=== PATIENT | male | born 1960 | race Caucasian/White ===

== ENCOUNTER 2019-04-21 15:43 | Inpatient (IN) ==
[2019-04-21] MEDS ORDERED: 0.9 % Sodium Chloride 1,000 ML IVC ONE (15:57)
[2019-04-21] MEDS ORDERED: Vancomycin 1,000 MG VIAL IVPB ONE (15:57)
--- NOTE | 2019-04-21 16:00 | Emergency Department Note ---
Disposition Clinical Impression: Abscess Cellulitis Qualifiers: Site of cellulitis: extremity Site of cellulitis of extremity: upper extremity Laterality: right Qualified Code(s): L03.113 - Cellulitis of right upper limb Disposition: Admitted As Inpatient Time of Disposition: 18:01 General Adult HPI - General Chief complaint: ED Recheck/Abnormal Lab/Rx Stated complaint: "cellulitis" Time Seen by Provider: 04/21/19 15:53 Limitations: no limitations Nursing Notes Reviewed: Yes Vital Signs Reviewed: Yes - History of Present Illness HPI Narrative: Patient is a 58-year-old male with past medical history including hyperlipidemia, coronary artery disease with stent placement on Plavix, pacemaker for syncope, presenting with a chief complaint of worsening right arm infection. The patient states 4 days ago, he developed a knot that was concerning for abscess formation on his right elbow. He states he has one other history of an abscess that was an incision and drainage on his right forearm in December. He denies history of diabetes mellitus. He followed up with his primary care physician 3 days ago who gave him an intramuscular antibiotic shot and discharged him home with doxycycline. He states the knot became more swol coretta and tender. He also notes redness around the area. He followed up in the emergency department yesterday overnight. He had an incision and drainage of the abscess. He was discharged home on Keflex in addition to his doxycycline. Today, he complains of worsening swelling and redness. He states it is tracking up his right arm. He denies fevers or chills, numbness or tingling, abdominal pain, nausea or vomiting, chest pain, shortness breath. Pain Scale: 7 - Related Data Home Medications Medication Instructions Recorded Confirmed Aspirin [Lo-Dose Aspirin EC] 81 mg PO DAILY 04/22/17 12/31/18 Atorvastatin [Lipitor] 80 mg PO HS 04/22/17 12/31/18 Clopidogrel [Plavix] 75 mg PO DAILY 04/22/17 12/31/18 Latanoprost/Pf [Latanoprost 0.005% 1 drop BOTH EYES HS 04/22/17 12/31/18 Eye Drop] Nitroglycerin 0.4 mg SL AD PRN 12/31/18 12/31/18 Previous Rx's Medication Instructions Recorded Acetaminophen [Tylenol] 650 mg PO Q6H PRN tablet 01/03/19 Doxycycline Hyclate 100 mg PO BID #6 capsule 01/03/19 cephALEXin [Keflex] 500 mg PO QID #28 capsule 04/20/19 Allergies Allergy/AdvReac Type Severity Reaction Status Date / Time Penicillins [PCN] Allergy See Verified 04/21/19 15:50 Comments fentanyl AdvReac Hallucinati Verified 04/21/19 15:50 ng All systems ED: reviewed and negative except as stated. Review of Systems: As Per HPI Constitutional: Denies: fever, chills Cardiovascular: Denies: chest pain, palpitations Respiratory: Denies: cough, dyspnea Gastrointestinal: Denies: abdominal pain, nausea, vomiting Integumentary: Reports: other (abscess, redness, swelling) Neurological: Denies: headache, weakness, numbness Past Medical History - Past Medical History Attestation: Yes The following information was validated with the patient. Source: patient Medical history: Reports: glaucoma, myocardial infarction Surgical history: Reports: cholecystectomy, herniorrhaphy, knee replacement, other Psychiatric history: Reports: no psych history - Social History Smoking Status: Never smoker Smokeless Tobacco Status: No Alcohol use: Reports: none Drug use: Reports: none Physical Exam - General Limitations: no limitations General appearance: alert, in no apparent distress - Head Head exam: atraumatic, normocephalic - Eye Eye exam: Present: normal appearance, EOMI - ENT ENT exam: normal exam, normal oropharynx - Neck Neck exam: Present: normal inspection, trachea midline - Chest Chest inspection: Present: normal inspection, symmetric chest wall rise - Respiratory Respiratory exam: Present: normal lung sounds bilaterally. Absent: respiratory distress, wheezes - Cardiovascular Cardiovascular exam: Present: regular rate, normal rhythm, normal heart sounds, other (bilateral radial pulses equal and palpable) - Abdominal Exam Abdominal exam: Present: soft, Non-Tender. 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, bilateral upper extremity strength 5 out of 5, no sensory deficits of the right hand) - Psychiatric Psychiatric exam: Present: normal affect, normal mood - Skin Skin exam: Present: warm, dry Course Vital Signs Temperature 98.2 F 04/21/19 15:49 Pulse Rate 102 04/21/19 15:49 Respiratory Rate 16 04/21/19 15:49 Blood Pressure 119/75 04/21/19 15:49 O2 Sat by Pulse Oximetry 95 04/21/19 15:49 Temperature 98.2 F 04/21/19 15:49 Pulse Rate 84 04/21/19 16:39 Respiratory Rate 16 04/21/19 16:39 Blood Pressure 131/84 04/21/19 16:39 O2 Sat by Pulse Oximetry 96 04/21/19 16:39 Oxygen Delivery Oxygen Delivery Room Air Medical Decision Making - [facility] Narrative Medical decision making narrative: Patient is presenting with worsening right upper extremity cellulitis and abscess. He has failed outpatient treatment with doxycycline and Keflex. We wi ll start IV vancomycin. He will require CT upper extremity with IV contrast to evaluate the extent of the infection as well as any involvement of the vascular structures. We will obtain CBC, BMP, lactate, blood cultures as well. He does not want anything for pain at this time. He was mildly tachycardic so we will give him IV fluids. Tdap will also be given 17:15 Discussed with hospitalist, Dr. Bermudez, who accepts admission for cellulitis and abscess that failed outpatient treatment.. CT imaging is still pending at this time. Patient remains medically stable. 18:[address] Blas who will be admitting the patient. He added cefepime for additional antibiotic coverage. Patient's CT imaging is pending at this time. He has no acute complaints and is stable. - Medical Records Medical records reviewed: Yes I reviewed the patient's medical records. - Lab Data Lab results reviewed: Yes I reviewed the patient's lab results. Result diagrams: 04/21/19 16:32 04/21/19 16:32 Lab Results 04/21/19 04/21/19 Range/Units 16:32 16:32 WBC 7.0 (4.3-11.1) K/mcL RBC 5.14 (4.19-5.50) M/mcL Hgb 15.5 (12.9-16.9) g/dL Hct 44.0 (37.5-50.1) % MCV 85.6 (83.0-100.0) fL MCH 30.2 (28.0-33.3) pg MCHC 35.2 (31.6-35.5) g/dL RDW 11.8 (11.5-14.5) % Plt Count 210 (140-400) K/mcL MPV 12.5 H (9.4-12.4) fL Immature Gran % 0.4 (0-4) % Seg Neutrophils % 60.6 % Lymphocytes % 25.9 % Monocytes % 9.5 % Eosinophils % 2.6 % Basophils % 1.0 % Neutrophils # 4.2 (1.6-8.9) K/mcL Lymphocytes # 1.8 (0.6-4.6) K/mcL Monocytes # 0.7 (0.0-1.3) K/mcL Eosinophils # 0.2 (0.0-0.6) K/mcL Basophils # 0.1 (0.0-0.2) K/mcL Sodium 137 (136-145) mEq/L Potassium 3.5 (3.5-5.1) mEq/L Chloride 103 (98-107) mEq/L Carbon Dioxide 24 (23-29) mEq/L BUN 11 (6-20) mg/dL Creatinine 0.98 (0.70-1.30) mg/dL Est GFR ( Amer) > 60 (> 60) Est GFR (Non-Af Amer) > 60 (> 60) BUN/Creatinine Ratio 11 (6-26) Glucose 131 H (70-105) mg/dL Calculated Osmolality 285 (280-300) Calcium 9.4 (8.6-10.3) mg/dL Attestation Statement - Attestation Attestation: Patient was seen with resident physician. I reviewed the history, physical, assessment and plan, and agree with the findings. I also personally evaluated this patient and had [id number] time with this patient. 58-year-old male presents emergency Department with swelling of the right elbow. Patient states that on Sunday he was diagnosed with cellulitis given a shot by his primary care doctor and started on 2 antibiotics. He said he got worse came in Sunday and it was drained in the emergency department. However he said since then it continued to get worse. He said the swelling is now moving up his arm. It has also gotten more indurated red around with a did a draining. Patient says also getting more and more painful. He denies fevers or chills no chest pain or short of breath. No other complaints. No other injuries. Review of systems as above remainder negative. Physical exam vital signs are stable. ENT is unremarkable. Heart regular rhythm and rate. Lungs clear. Abdomen soft nontender. Extremities patient has what appears to be an abscess drainage wound on the lateral aspect of the right elbow. The area however is indurated is red and there is swelling is moving up the elbow at this point. It is exquisitely tender to palpation. Skin rashes noted. Psych normal. ED course. Patient's basically failed outpatient therapy. We will get a CT scan with IV contrast of the elbow just to ascertain the extent of the patient's infection. He will be started on IV antibiotics and admitted the hospital service for further evaluation treatment. His tetanus will also be updated. I agree with resident physician assessment and plan.
[2019-04-21] MEDS ORDERED: Isovue-370 500 ML BOTTLE IVP ONE (16:01)
[2019-04-21] MEDS ORDERED: Tdap (Boostrix) Vaccine 0.5 ML SYRINGE IM ONE (16:34)
[2019-04-21 16:45] LABS: Basophils # 0.1 K/mcL (0.0-0.2); Eosinophils # 0.2 K/mcL (0.0-0.6); Eosinophils % 2.6 %; Hemoglobin 15.5 g/dL (12.9-16.9); Immature Granulocytes % 0.4 % (0-4); Lymphocytes # 1.8 K/mcL (0.6-4.6); Lymphocytes % 25.9 %; Mean Corpuscular HGB Conc 35.2 g/dL (31.6-35.5); Mean Corpuscular Hemoglobin 30.2 pg (28.0-33.3); Mean Corpuscular Volume 85.6 fL (83.0-100.0); Mean Platelet Volume 12.5 fL (9.4-12.4); Monocytes # 0.7 K/mcL (0.0-1.3); Monocytes % 9.5 %; Neutrophils # 4.2 K/mcL (1.6-8.9); Platelet Count 210 K/mcL (140-400); Red Blood Count 5.14 M/mcL (4.19-5.50); Red Cell Distribution Width 11.8 % (11.5-14.5); Segmented Neutrophils % 60.6 %
[2019-04-21 17:01] LABS: BUN/Creatinine Ratio 11 (6-26); Blood Urea Nitrogen 11 mg/dL (6-20); Calcium 9.4 mg/dL (8.6-10.3); Carbon Dioxide 24 mEq/L (23-29); Chloride 103 mEq/L (98-107); Glucose 131 mg/dL (70-105); Osmolality,Calculated 285 (280-300); Potassium 3.5 mEq/L (3.5-5.1); Sodium 137 mEq/L (136-145); eGFR For African Americans > 60 (> 60); eGFR For Non-African Americans > 60 (> 60)
[2019-04-21] MEDS ORDERED: Naloxone 0.4 MG/ML INJ IVP PRN (17:27)
--- NOTE | 2019-04-21 17:53 | Internal Med History&Physical ---
Date of Encounter: 04/21/19 Time of Encounter: 17:30 Internal Medicine - H&P: HPI Chief complaint: right elbow cellultis History of present illness: Mr. Higginbotham is a 58 year old male with pmh of cellulitis, CAD presenting with right elbow swelling and warmth of a couple of days duration. He was recently here in december for a right forearm cellulitis which was drained and he was discharged on gentamicin. He comes back this time with a knot formation around the elbow. He says he had some contact with poison deb, which must have occurred while he was mowing grass. He went to his PCP about 3 days ago and was discharged on doxycycline. But he says the swelling and redness wasn't getting better, so he came to the ER yesterday and had an incision and drainage done and was discharged on keflex. However, he has continued to have worsening redness and pain around the elbow and returns to the ER today. He denies any other acute symptoms such as nausea or vomiting. He admits to intermittent fevers and chills. He had warmth and drainage around the upper right elbow on assessment In the ER, he had a CT scan done and was started on zosyn. He is being admitted for further management Past Med Surg Social Fam HX - Past Medical History Medical history: glaucoma, myocardial infarction Additional medical history: chronic back pain,. bradycardia Psychiatric history: no psych history - Past Surgical History Surgical History: cholecystectomy, herniorrhaphy, knee replacement, other Additional surgical history: shoulder surgery,. heart stent. cyst removed. thumb surgery. cervical disc - Social History Smoking Status: Never smoker Smokeless Tobacco Status: No Alcohol use: none Drug use: none Internal Medicine - H&P: Meds Aspirin [Lo-Dose Aspirin EC] 81 mg PO DAILY 04/22/17 [History] Atorvastatin [Lipitor] 80 mg PO HS 04/22/17 [History] Clopidogrel [Plavix] 75 mg PO DAILY 04/22/17 [History] Latanoprost/Pf [Latanoprost 0.005% Eye Drop] 1 drop BOTH EYES HS 04/22/17 [History] Nitroglycerin 0.4 mg SL AD PRN 12/31/18 [History] Acetaminophen [Tylenol] 650 mg PO Q6H PRN tablet 01/03/19 [Rx] Doxycycline Hyclate 100 mg PO BID #6 capsule 01/03/19 [Rx] cephALEXin [Keflex] 500 mg PO QID #28 capsule 04/20/19 [Rx] Allergy/AdvReac Type Severity Reaction Status Date / Time Penicillins [PCN] Allergy See Verified 04/21/19 15:50 Comments fentanyl AdvReac Hallucinati Verified 04/21/19 15:50 ng All Systems PM: A 10-system review of systems was performed and is negative for pertinent findings except as documented above in the HPI. - Constitutional Constitutional: no chills, no fever(s), no night sweats - EENT Eyes: no change in vision, no discharge, no pain, no photophobia Ears: no ear discharge, no ear pain, no tinnitus Nose, mouth and throat: no dysphagia, no nasal discharge, no neck pain, no sore throat - Cardiovascular Cardiovascular ROS IM: no chest pain, no diaphoresis, no dyspnea, no lightheadedness, no palpitations, no syncope - Respiratory Respiratory: no cough, no dyspnea, no wheezing, no excessive phlegm production - Gastrointestinal Gastrointestinal: no abdominal pain, no diarrhea, no hematemesis, no hematochezia, no melena, no nausea, no vomiting - Musculoskeletal Musculoskeletal ROS IM: no numbness, no tingling - Integumentary Integumentary IM: no rash, no unusual bruising Additional comments: elbow swelling, pain and redness - Neurological Neurological ROS: no confusion, no convulsions, no focal weakness, no numbness, no tingling, no tremor(s) - Hematologic/Lymphatic Hematologic/Lymphatic: no easy bruising - Constitutional Vitals: Temp Pulse Resp BP Pulse Ox 98.2 F 84 16 131/84 96 04/21/19 15:49 04/21/19 16:39 04/21/19 16:39 04/21/19 16:39 04/21/19 16:39 Exam: NAD - Head Head exam: Present: atraumatic, normocephalic - Eye Eye exam: Present: PERRL, conjuntiva pink, sclera anicteric Pupils: Present: PERRL - Neck Neck exam general surgery: Present: supple, trachea midline. Absent: lymphadenopathy - Respiratory Respiratory exam: Present: CTAB. Absent: accessory muscle use, rales, rhonchi, wheezes - Cardiovascular Cardiovascular exam: Present: RRR, +S1, +S2. Absent: diastolic murmur, gallop, rubs, systolic murmur - GI/Abdominal GI/Abdominal exam: Present: normal bowel sounds, soft, no peritoneal signs. Absent: distended, tenderness - Extremities Exam Extremities exam: Present: warm, radial pulses palpable and symmetrical. Absent: calf tenderness, cyanotic, pedal edema - Neurological Exam Neurological exam: Present: CN II-XII intact, oriented X3, no focal deficits. Absent: pronater drift, facial droop, speech deficit - Skin Skin exam: Present: dry, intact Internal Med - H&P Results - Labs CBC & Chem 7: 04/21/19 16:32 04/21/19 16:32 Labs: Short CBC 04/21/19 Range/Units 16:32 WBC 7.0 (4.3-11.1) K/mcL Hgb 15.5 (12.9-16.9) g/dL Hct 44.0 (37.5-50.1) % Plt Count 210 (140-400) K/mcL Neutrophils # 4.2 (1.6-8.9) K/mcL BMP 04/21/19 16:32 Sodium 137 Potassium 3.5 Chloride 103 Carbon Dioxide 24 BUN 11 Creatinine 0.98 Glucose 131 H Calcium 9.4 - Assessment and Plan (1) Recurrent cellulitis Current Visit: Yes Status: Acute Assessment and plan: Pt comes in with recurrent cellulitis of elbow with failed outpatient therapy on doxycycline and keflex Will start on vanc,c efepime and metronidazole. Obtain blood cultures Upper extremity. CT scan ordered stat. Ortho consult pending CT results (2) Coronary artery disease Current Visit: Yes Status: Acute Assessment and plan: Continue aspirin and plavix Qualifiers: Associated angina: with unspecified angina Qualified Code(s): I25.119 - Atherosclerotic heart disease of [place] coronary artery with unspecified angina pectoris (3) Dyslipidemia Current Visit: Yes Status: Acute Assessment and plan: Continue statin (4) DVT prophylaxis Current Visit: Yes Status: Acute Assessment and plan: heparin sc - Time Spent With Patient Total time spent is greater than 50% in coordination of care (as documented) at patient's floor/unit and/or counseling patient:
[2019-04-21] MEDS: Aspirin Enteric Coated 81 MG Tablet PO SCH (22:04)
[2019-04-21] MEDS: Cefepime HCl 2,000 MG in Water for inj. (sterile) 20 ML IVP SCH (22:04)
[2019-04-21] MEDS: Latanoprost 2.5 ML BOTTLE BOTH EYES SCH (22:43)
[2019-04-22] MEDS: MetroNIDAZOLE 500 MG/100 ML 500 MG/100 ML BAG IVPB SCH ×4 (00:14→23:05)
[2019-04-22 05:01] LABS: Basophils # 0.1 K/mcL (0.0-0.2); Basophils % 1.2 %; Eosinophils # 0.3 K/mcL (0.0-0.6); Eosinophils % 4.9 %; Hematocrit 43.9 % (37.5-50.1); Hemoglobin 15.2 g/dL (12.9-16.9); Immature Granulocytes % 0.3 % (0-4); Lymphocytes # 1.6 K/mcL (0.6-4.6); Lymphocytes % 26.4 %; Mean Corpuscular HGB Conc 34.6 g/dL (31.6-35.5); Mean Corpuscular Hemoglobin 30.3 pg (28.0-33.3); Mean Corpuscular Volume 87.6 fL (83.0-100.0); Mean Platelet Volume 12.4 fL (9.4-12.4); Monocytes # 0.6 K/mcL (0.0-1.3); Monocytes % 9.8 %; Neutrophils # 3.4 K/mcL (1.6-8.9); Platelet Count 186 K/mcL (140-400); Red Blood Count 5.01 M/mcL (4.19-5.50); Segmented Neutrophils % 57.4 %; White Blood Count 5.9 K/mcL (4.3-11.1)
[2019-04-22 05:22] LABS: BUN/Creatinine Ratio 11 (6-26); Blood Urea Nitrogen 11 mg/dL (6-20); Calcium 9.3 mg/dL (8.6-10.3); Carbon Dioxide 26 mEq/L (23-29); Chloride 107 mEq/L (98-107); Glucose 104 mg/dL (70-105); Magnesium 2.1 mg/dL (1.6-2.6); Osmolality,Calculated 286 (280-300); Phosphorous 3.8 mg/dL (2.7-4.5); Potassium 4.1 mEq/L (3.5-5.1); Sodium 138 mEq/L (136-145); eGFR For African Americans > 60 (> 60); eGFR For Non-African Americans > 60 (> 60)
[2019-04-22] MEDS: Cefepime HCl 2,000 MG in Water for inj. (sterile) 20 ML IVP SCH ×2 (06:37→17:50)
--- NOTE | 2019-04-22 08:27 | Internal Med Progress Note ---
Hospitalist Progress Note - Encounter Date of Encounter: 04/22/19 Time of Encounter: 08:25 - Subjective Interval History: No acute events overnight - Exam Vitals: Temp Pulse Resp BP Pulse Ox 97.5 F L 63 14 123/73 96 04/22/19 06:33 04/22/19 06:33 04/22/19 06:33 04/22/19 06:33 04/22/19 06:33 Exam: General appearance: Present: A&O X 3, no acute distress Head exam: Present: normocephalic Respiratory exam: Present: CTAB. Absent: accessory muscle use, rales, rhonchi, wheezes Cardiovascular exam: Present: RRR, +S1, +S2. Absent: diastolic murmur, gallop, rubs, systolic murmur GI/Abdominal exam: Soft, NT, ND, +BS Extremities exam: redness of rightupper extremity Neurological exam: Present: alert, oriented X3, no focal deficits. Absent: altered - Assessment and Plan (1) Recurrent cellulitis Current Visit: Yes Status: Acute Assessment and Plan: Pt comes in with recurrent cellulitis of elbow with failed outpatient therapy on doxycycline and keflex Continue on vanc, cefepime and metronidazole. Obtain blood cultures CT upper extremity showed no drainable abscess or fluid collection (2) Coronary artery disease Current Visit: Yes Status: Acute Assessment and Plan: Continue aspirin and plavix (3) Dyslipidemia Current Visit: Yes Status: Acute Assessment and Plan: Continue statin (4) DVT prophylaxis Current Visit: Yes Status: Acute Assessment and Plan: heparin sc - Time Spent with Patient Total time spent is greater than 50% in coordination of care (as documented) at patient's floor/unit and/or counseling patient: Internal Medicine: Result - Labs CBC & Chem 7: 04/22/19 04:10 04/22/19 04:10 Labs: Short CBC 04/21/19 04/22/19 Range/Units 16:32 04:10 WBC 7.0 5.9 (4.3-11.1) K/mcL Hgb 15.5 15.2 (12.9-16.9) g/dL Hct 44.0 43.9 (37.5-50.1) % Plt Count 210 186 (140-400) K/mcL Neutrophils # 4.2 3.4 (1.6-8.9) K/mcL BMP 04/21/19 04/22/19 16:32 04:10 Sodium 137 138 Potassium 3.5 4.1 Chloride 103 107 Carbon Dioxide 24 26 BUN 11 11 Creatinine 0.98 0.98 Glucose 131 H 104 Calcium 9.4 9.3 - Impressions Impressions Upper Extremity CT 04/21/19 16:01 IMPRESSION: 1. Diffuse subcutaneous edema involving the distal upper arm and forearm predominantly along the dorsal and ulnar aspect of the forearm. Correlate clinically for cellulitis. No organized drainable fluid collection identified. No subcutaneous gas is identified. 2. No acute osseous abnormality. No CT evidence for osteomyelitis. 3. Moderate glenohumeral osteoarthritis and mild radiocapitellar and ulnar trochlear joint osteoarthritis. D/ / Zac Gómez MD / Zac Gómez MD Interpreting Provider: Zac Gómez MD Consult Discharge Plan - Plan Referrals: Dilshad Powell DO [Primary Care Provider] - (2) Coronary artery disease Qualifiers: Associated angina: with unspecified angina Qualified Code(s): I25.119 - Atherosclerotic heart disease of [place] coronary artery with unspecified angina pectoris
[2019-04-22] MEDS: Aspirin Enteric Coated 81 MG Tablet PO SCH (20:27)
[2019-04-22] MEDS: Latanoprost 2.5 ML BOTTLE BOTH EYES SCH (20:28)
[2019-04-23] MEDS: Cefepime HCl 2,000 MG in Water for inj. (sterile) 20 ML IVP SCH (05:39)
[2019-04-23 06:34] LABS: Basophils # 0.1 K/mcL (0.0-0.2); Basophils % 1.2 %; Eosinophils # 0.3 K/mcL (0.0-0.6); Eosinophils % 4.9 %; Hematocrit 44.2 % (37.5-50.1); Hemoglobin 15.4 g/dL (12.9-16.9); Immature Granulocytes % 0.2 % (0-4); Lymphocytes # 1.6 K/mcL (0.6-4.6); Lymphocytes % 28.1 %; Mean Corpuscular HGB Conc 34.8 g/dL (31.6-35.5); Mean Corpuscular Volume 86.2 fL (83.0-100.0); Monocytes # 0.5 K/mcL (0.0-1.3); Monocytes % 9.1 %; Neutrophils # 3.2 K/mcL (1.6-8.9); Platelet Count 229 K/mcL (140-400); Red Blood Count 5.13 M/mcL (4.19-5.50); Red Cell Distribution Width 11.9 % (11.5-14.5); Segmented Neutrophils % 56.5 %; White Blood Count 5.7 K/mcL (4.3-11.1)
[2019-04-23 06:55] LABS: BUN/Creatinine Ratio 13 (6-26); Blood Urea Nitrogen 12 mg/dL (6-20); Calcium 9.3 mg/dL (8.6-10.3); Carbon Dioxide 25 mEq/L (23-29); Chloride 105 mEq/L (98-107); Glucose 102 mg/dL (70-105); Osmolality,Calculated 286 (280-300); Phosphorous 3.2 mg/dL (2.7-4.5); Potassium 4.4 mEq/L (3.5-5.1); Sodium 138 mEq/L (136-145); eGFR For African Americans > 60 (> 60); eGFR For Non-African Americans > 60 (> 60)
[2019-04-23] MEDS ORDERED: MetroNIDAZOLE 500 MG/100 ML 500 MG/100 ML BAG IVPB SCH (09:00)
--- NOTE | 2019-04-23 09:01 | Internal Med Progress Note ---
Hospitalist Progress Note - Encounter Date of Encounter: 04/23/19 Time of Encounter: 08:59 - Subjective Interval History: I have seen and evaluated the patient at bedside. patient reports still feeling his arm feels heavier and swollen, but reports it is better that what it was when he came to the ED. denies tenderness to tough. denies nausea, vomiting or diarrhea. - Exam Vitals: Temp Pulse Resp BP Pulse Ox 98.3 F 70 16 134/78 96 04/23/19 06:37 04/23/19 06:37 04/23/19 06:37 04/23/19 06:37 04/23/19 06:37 Exam: Vitals: Reviewed General: Alert and oriented x4. In no distress Cardiovascular: RRR, normal S1 & S2, no rubs, murmurs or gallops. Lungs: CTA b/l, no wheezes or crackles. Abdomen: Soft, non-tender, no rigidity. Extremities: minimal edema on the right upper extr. Neurological: Normal cognition and motor skills. Rest of the physical exam is non contributory - Assessment and Plan (1) Cellulitis Current Visit: Yes Status: Acute Assessment and Plan: Patient reported having a similar episode of cellulitis of the right upper extr on December 2018, that required Iv antibiotics CT/CT UE RT w con IMPRESSION: 1. Diffuse subcutaneous edema involving the distal upper arm and forearm predominantly along the dorsal and ulnar aspect of the forearm. Correlate clinically for cellulitis. No organized drainable fluid collection identified. No subcutaneous gas is identified. 2. No acute osseous abnormality. No CT evidence for osteomyelitis. 3. Moderate glenohumeral osteoarthritis and mild radiocapitellar and ulnar trochlear joint osteoarthritis. Plan Wound culture: Growing gram positive cocci, presumptively staph, sensitivity to follow. discontinue metronidazole and cefepime. will continue vancomycin per pharmacy protocol (2) Coronary artery disease Current Visit: Yes Status: Chronic Assessment and Plan: Continue aspirin 821mg/PO daily and clopidogrel 75mg/PO daily, home medication (3) Dyslipidemia Current Visit: Yes Status: Acute Assessment and Plan: on atorvastatin 80mg/PO daily. DVT Prophylaxis: Started on heparin subQ. - Summary of Assessment and Plan Summary of Assessment and Plan: Patient to remain in the hospital on IV antibiotics. Pending wound culture sensitivity. Potential discharge tomorrow on PO antibiotics - Time Spent with Patient Total time spent is greater than 50% in coordination of care (as documented) at patient's floor/unit and/or counseling patient: Greater than 35 minutes (40) Plan of Care Discussed with: patient (and the nurse.) Internal Medicine: Result - Labs CBC & Chem 7: 04/23/19 06:20 04/23/19 06:20 Labs: Short CBC 04/23/19 Range/Units 06:20 WBC 5.7 (4.3-11.1) K/mcL Hgb 15.4 (12.9-16.9) g/dL Hct 44.2 (37.5-50.1) % Plt Count 229 (140-400) K/mcL Neutrophils # 3.2 (1.6-8.9) K/mcL BMP 04/23/19 06:20 Sodium 138 Potassium 4.4 Chloride 105 Carbon Dioxide 25 BUN 12 Creatinine 0.90 Glucose 102 Calcium 9.3 Consult Discharge Plan - Plan Referrals: Dilshad Powell DO [Primary Care Provider] - (1) Cellulitis Qualifiers: Site of cellulitis: extremity Site of cellulitis of extremity: upper extremity Laterality: right Qualified Code(s): L03.113 - Cellulitis of right upper limb (2) Coronary artery disease Qualifiers: Coronary Disease-Associated Artery/Lesion type: unspecified vessel or lesion type [place] vs. transplanted heart: unspecified whether [place] or transplanted heart Associated angina: with unspecified angina Qualified Code(s): I25.119 - Atherosclerotic heart disease of [place] coronary artery with unspecified angina pectoris
[2019-04-23] MEDS: *HR* Heparin 5,000 UNIT/ML VIAL SQ SCH ×2 (14:58→20:38)
[2019-04-23] MEDS: Aspirin Enteric Coated 81 MG Tablet PO SCH (20:34)
[2019-04-23] MEDS: Latanoprost 2.5 ML BOTTLE BOTH EYES SCH (20:37)
[2019-04-24] MEDS: *HR* Heparin 5,000 UNIT/ML VIAL SQ SCH (06:27)
[2019-04-24 08:38] VITALS: BP 128/80
[2019-04-24 09:09] LABS: Basophils # 0.1 K/mcL (0.0-0.2); Eosinophils # 0.3 K/mcL (0.0-0.6); Eosinophils % 4.9 %; Hematocrit 45.9 % (37.5-50.1); Hemoglobin 15.8 g/dL (12.9-16.9); Immature Granulocytes % 0.5 % (0-4); Lymphocytes # 2.2 K/mcL (0.6-4.6); Lymphocytes % 35.4 %; Mean Corpuscular HGB Conc 34.4 g/dL (31.6-35.5); Mean Corpuscular Hemoglobin 29.5 pg (28.0-33.3); Mean Corpuscular Volume 85.8 fL (83.0-100.0); Monocytes # 0.5 K/mcL (0.0-1.3); Monocytes % 8.1 %; Neutrophils # 3.1 K/mcL (1.6-8.9); Platelet Count 243 K/mcL (140-400); Red Blood Count 5.35 M/mcL (4.19-5.50); Red Cell Distribution Width 11.8 % (11.5-14.5); Segmented Neutrophils % 50.1 %; White Blood Count 6.2 K/mcL (4.3-11.1)
[2019-04-24 09:27] LABS: BUN/Creatinine Ratio 14 (6-26); Blood Urea Nitrogen 12 mg/dL (6-20); Calcium 9.2 mg/dL (8.6-10.3); Carbon Dioxide 29 mEq/L (23-29); Chloride 106 mEq/L (98-107); Glucose 90 mg/dL (70-105); Magnesium 2.1 mg/dL (1.6-2.6); Osmolality,Calculated 287 (280-300); Phosphorous 2.9 mg/dL (2.7-4.5); Potassium 4.1 mEq/L (3.5-5.1); Sodium 139 mEq/L (136-145); eGFR For African Americans > 60 (> 60); eGFR For Non-African Americans > 60 (> 60)
--- NOTE | 2019-04-24 09:52 | Discharge Summary ---
Orders not resulted at time of discharge: Pending orders 04/21/19 16:59 Culture,Blood [BC] Stat 04/24/19 18:00 Vancomycin,Trough Timed 04/25/19 04:00 Basic Metabolic Panel AM 0400 CBC [Complete Blood Count] [HEME] AM 0400 Magnesium AM 0400 Phosphorous AM 0400 04/26/19 04:00 Basic Metabolic Panel AM 0400 CBC [Complete Blood Count] [HEME] AM 0400 Magnesium AM 0400 Phosphorous AM 0400 04/27/19 04:00 Basic Metabolic Panel AM 0400 CBC [Complete Blood Count] [HEME] AM 0400 Magnesium AM 0400 Phosphorous AM 0400 04/28/19 04:00 Basic Metabolic Panel AM 0400 CBC [Complete Blood Count] [HEME] AM 0400 Magnesium AM 0400 Phosphorous AM 0400 Date of Encounter: 04/24/19 Time of Encounter: 09:49 - Discharge Diagnosis (1) Cellulitis Priority: Primary Status: Acute Qualifiers: Site of cellulitis: extremity Site of cellulitis of extremity: upper extremity Laterality: right Qualified Code(s): L03.113 - Cellulitis of right upper limb (2) Coronary artery disease Priority: Secondary Status: Chronic Qualifiers: Coronary Disease-Associated Artery/Lesion type: unspecified vessel or lesion type [place] vs. transplanted heart: unspecified whether [place] or transplanted heart Associated angina: with unspecified angina Qualified Code(s): I25.119 - Atherosclerotic heart disease of [place] coronary artery with unspecified angina pectoris (3) Dyslipidemia Priority: Secondary Status: Chronic Hospital course: Mr. Higginbotham is a 58 year old male pmh of cellulitis, CAD presenting with right elbow swelling and warmth of a couple of days duration. He was recently here in december for a right forearm cellulitis which was drained and he was discharged on gentamicin. He comes back this time with a knot formation around the elbow. he came to the ER the day before this admission and had an incision and drainage done and was discharged on keflex. However, he has continued to have worsening redness and pain around the elbow and returns to the ER. In the ER a CT of the extremity done: 1. Diffuse subcutaneous edema involving the distal upper arm and forearm predominantly along the dorsal and ulnar aspect of the forearm. Correlate clinically for cellulitis. No organized drainable fluid collection identified. No subcutaneous gas is identified. Patient admitted to the hospital due to to cellulitis. Patient was managed with broad spectrum IV antibiotics. Wound culture: grew staph aureus MSSA. Patient allergic to penicillins. Discharged on oral clindamycin to complete treatment. Recommended to follow up with his PCP within a week of hospital discharge. - Time Spent with Patient Total time spent providing and/or coordinating discharge services: Time spent: Greater than 30 minutes (35) - Discharge Medications Prescriptions: New Lactobacillus Acidophilus [Acidophilus Probiotic] 1 mg PO BID 30 Days #60 tablet Clindamycin HCl [Cleocin HCl] 300 mg PO TID 5 Days #15 cap Continued Clopidogrel [Plavix] 75 mg PO DAILY Atorvastatin [Lipitor] 80 mg PO HS Latanoprost/Pf [Latanoprost 0.005% Eye Drop] 1 drop BOTH EYES HS Aspirin [Lo-Dose Aspirin EC] 81 mg PO DAILY Nitroglycerin 0.4 mg SL AD PRN PRN Reason: Chest Pain Acetaminophen [Tylenol] 650 mg PO Q6H PRN tablet PRN Reason: Pain Discontinued Doxycycline Hyclate 100 mg PO BID #6 capsule Home Medications: Aspirin [Lo-Dose Aspirin EC] 81 mg PO DAILY 04/22/17 [History] Atorvastatin [Lipitor] 80 mg PO HS 04/22/17 [History] Clopidogrel [Plavix] 75 mg PO DAILY 04/22/17 [History] Latanoprost/Pf [Latanoprost 0.005% Eye Drop] 1 drop BOTH EYES HS 04/22/17 [History] Nitroglycerin 0.4 mg SL AD PRN 12/31/18 [History] Acetaminophen [Tylenol] 650 mg PO Q6H PRN tablet 01/03/19 [Rx] Clindamycin HCl [Cleocin HCl] 300 mg PO TID 5 Days #15 cap 04/24/19 [Rx] Lactobacillus Acidophilus [Acidophilus Probiotic] 1 mg PO BID 30 Days #60 tablet 04/24/19 [Rx] Allergies/Adverse Reactions: Allergy/AdvReac Type Severity Reaction Status Date / Time Penicillins [PCN] Allergy See Verified 04/21/19 15:50 Comments fentanyl AdvReac Hallucinati Verified 04/21/19 15:50 ng Date of admission: 04/21/19 17:27 Primary care physician: Ben Powell DO - Constitutional Vitals: Temp Pulse Resp BP Pulse Ox 98 F 61 18 128/80 95 04/24/19 07:46 04/24/19 07:46 04/24/19 07:46 04/24/19 07:46 04/24/19 07:46 Exam: Vitals: Reviewed General: Alert and oriented x4. In no distress Cardiovascular: RRR, normal S1 & S2, no rubs, murmurs or gallops. Lungs: CTA b/l, no wheezes or crackles. Abdomen: Soft, non-tender, no rigidity. NABS in all 4 quadrants Extremities: No edema in the upper or lower extr b/l. Neurological: Normal cognition and motor skills. Rest of the physical exam is non contributory - Patient Status Disposition: Home, Self-Care Condition: Good Functional capacity at discharge: independent ambulation Overall status at discharge: patient is back to baseline - Discharge Instructions Follow Up With: Dilshad Powell DO [Primary Care Provider] - - Diet and Activity Activity: resume usual activities as tolerated Diet: low salt diet
[2019-04-24] MEDS ORDERED: Aminoglycoside Consult 1 EACH MC ONE (11:19)
== END 2019-04-24 11:20 | disposition home or self-care (01) | DRG 603 ==
LOC: 3NENU 15:43 → EMEROOARM 15:43 → SUATTDRO 17:27 → 3NENU 19:41
PROVIDERS: ADMIT Internal Medicine Nephrology; ATTEND Internal Medicine

== ENCOUNTER 2020-02-02 12:39 | Observation (INO) ==
[~2020-02-02 12:39] MED LIST: Total Joint Mixture (50 ml) IR ONE
[2020-02-02] MEDS ORDERED: *HR* HYDROmorphone (PF) 1 MG/ML SYRINGE IVP PRN (13:32)
[2020-02-02] MEDS ORDERED: Ondansetron 4 MG/2 ML VIAL IVP PRN ×2 (13:32→19:17)
[2020-02-02] MEDS ORDERED: *HR* Labetalol 20 MG/4 ML SYRINGE IVP PRN (13:32)
[2020-02-02] MEDS ORDERED: Celecoxib 200 MG CAPSULE PO ONE (13:32)
[2020-02-02] MEDS ORDERED: *HR* Promethazine 25 MG/ML VIAL IVP PRN ×2 (13:32→19:17)
[2020-02-02] MEDS ORDERED: Clindamycin 900 MG/50 ML 900 MG/50 ML IV.SOLN IVPB ONE (13:59)
[2020-02-02] MEDS ORDERED: Ringers Solution, Lactated 1,000 ML IVC SCH (14:00)
[2020-02-02] MEDS ORDERED: Dexamethasone 4 MG/ML VIAL ONE (14:55)
[2020-02-02] MEDS ORDERED: Lidocaine -MPF 2% 2 ML VIAL ONE (14:55)
[2020-02-02] MEDS ORDERED: Ondansetron 4 MG/2 ML VIAL ONE (14:55)
[2020-02-02] MEDS ORDERED: *HR* Propofol 200 MG/20 ML VIAL IVP ONE (14:55)
[2020-02-02] MEDS ORDERED: *HR* HYDROMORPHONE 2 MG/ML VIAL ONE (14:55)
[2020-02-02] MEDS ORDERED: Tranexamic Acid 1,000 MG/10 ML VIAL ONE (15:01)
[2020-02-02] MEDS ORDERED: Ethanol\\Acetic Acid\\Na Ace\\Ben 1,000 ML IRRIG.SOLN IR ONE (15:21)
[2020-02-02] MEDS ORDERED: *HR* Succinylcholine 200 MG/10 ML VIAL IVP ONE (15:36)
[2020-02-02] MEDS ORDERED: *HR* Rocuronium Bromide 50 MG/5 ML VIAL ONE (15:37)
[2020-02-02] MEDS ORDERED: Neostigmine Methylsulfate 3 MG/3 ML SYRINGE ONE ×2 (17:18→17:19)
[2020-02-02 18:13] LABS: Hemoglobin 15.5 g/dL (12.9-16.9)
[2020-02-02] MEDS ORDERED: Nitroglycerin 0.4 MG TAB.SUBL SL PRN (19:17)
[2020-02-02] MEDS ORDERED: Sennosides 8.6 MG TABLET PO PRN (19:17)
[2020-02-02] MEDS ORDERED: MOM Conc 10 ML UD.LIQ PO PRN (19:17)
[2020-02-02] MEDS ORDERED: Naloxone 0.4 MG/ML INJ IVP PRN (19:17)
[2020-02-02] MEDS: Ascorbic Acid 500 MG TABLET PO SCH (21:21)
[2020-02-02] MEDS: Clindamycin 900 MG/50 ML 900 MG/50 ML IV.SOLN IVPB SCH (21:21)
[2020-02-02] MEDS: *HR* OxyCODONE Immed Rel 5 MG TABLET PO PRN (21:22)
[2020-02-02] MEDS: Latanoprost 2.5 ML BOTTLE BOTH EYES SCH (23:28)
[2020-02-02] MEDS: HYDROcodone BIT/Homatropine 5 MG TABLET PO PRN (23:28)
[2020-02-03] MEDS: *HR* OxyCODONE Immed Rel 5 MG TABLET PO PRN ×3 (03:19→20:13)
[2020-02-03] MEDS: Clindamycin 900 MG/50 ML 900 MG/50 ML IV.SOLN IVPB SCH (05:33)
[2020-02-03] MEDS: HYDROcodone BIT/Homatropine 5 MG TABLET PO PRN ×2 (05:34→12:28)
[2020-02-03 05:57] LABS: Basophils % 0.1 %; Hematocrit 41.2 % (37.5-50.1); Hemoglobin 14.1 g/dL (12.9-16.9); Immature Granulocytes % 0.3 % (0-4); Lymphocytes # 0.7 K/mcL (0.6-4.6); Lymphocytes % 5.9 %; Mean Corpuscular HGB Conc 34.2 g/dL (31.6-35.5); Mean Corpuscular Hemoglobin 30.1 pg (28.0-33.3); Mean Platelet Volume 12.7 fL (9.4-12.4); Monocytes # 0.6 K/mcL (0.0-1.3); Monocytes % 4.7 %; Neutrophils # 10.7 K/mcL (1.6-8.9); Platelet Count 180 K/mcL (140-400); Red Blood Count 4.68 M/mcL (4.19-5.50); Red Cell Distribution Width 11.7 % (11.5-14.5); White Blood Count 12.1 K/mcL (4.3-11.1)
[2020-02-03 06:08] LABS: BUN/Creatinine Ratio 20 (6-26); Blood Urea Nitrogen 19 mg/dL (6-20); Calcium 8.9 mg/dL (8.6-10.3); Carbon Dioxide 25 mEq/L (23-29); Chloride 101 mEq/L (98-107); Glucose 148 mg/dL (70-105); Osmolality,Calculated 293 (280-300); Potassium 4.5 mEq/L (3.5-5.1); Sodium 139 mEq/L (136-145); eGFR For African Americans > 60 (> 60); eGFR For Non-African Americans > 60 (> 60)
[2020-02-03] MEDS: Ringers Solution, Lactated 1,000 ML IVC SCH ×2 (07:56→09:05)
[2020-02-03] MEDS ORDERED: Dextrose Gel 15 GM/37.5 ML TUBE PO PRN ×2 (08:24)
[2020-02-03] MEDS ORDERED: D5% in Water 1,000 ML IVC PRN (08:24)
[2020-02-03] MEDS ORDERED: *HR* Dextrose 50 % in Water (Syg) 50 ML SYRINGE IVP PRN (08:24)
[2020-02-03] MEDS: Ascorbic Acid 500 MG TABLET PO SCH ×2 (09:05→16:38)
[2020-02-03] MEDS: Multivit/Ca/Min/Fe/FA 1 TAB TABLET PO SCH (09:05)
[2020-02-03] MEDS: Insulin LISPRO 300 UNITS/3 ML VIAL SQ SCH ×2 (12:28→16:37)
[2020-02-03] MEDS: Aspirin Enteric Coated 81 MG Tablet PO SCH (14:14)
[2020-02-03] MEDS: Latanoprost 2.5 ML BOTTLE BOTH EYES SCH (20:04)
[2020-02-03] MEDS ORDERED: Insulin LISPRO 300 UNITS/3 ML VIAL SQ SCH (21:00)
[2020-02-04] MEDS: *HR* OxyCODONE Immed Rel 5 MG TABLET PO PRN ×2 (02:59→08:06)
[2020-02-04 05:04] LABS: Basophils % 0.4 %; Eosinophils # 0.1 K/mcL (0.0-0.6); Eosinophils % 1.1 %; Hemoglobin 12.9 g/dL (12.9-16.9); Immature Granulocytes % 0.2 % (0-4); Lymphocytes # 2.5 K/mcL (0.6-4.6); Lymphocytes % 26.6 %; Mean Corpuscular HGB Conc 34.9 g/dL (31.6-35.5); Mean Corpuscular Hemoglobin 31.1 pg (28.0-33.3); Mean Corpuscular Volume 89.2 fL (83.0-100.0); Mean Platelet Volume 12.6 fL (9.4-12.4); Monocytes # 0.9 K/mcL (0.0-1.3); Monocytes % 10.1 %; Neutrophils # 5.7 K/mcL (1.6-8.9); Platelet Count 168 K/mcL (140-400); Red Blood Count 4.15 M/mcL (4.19-5.50); Segmented Neutrophils % 61.6 %; White Blood Count 9.3 K/mcL (4.3-11.1)
[2020-02-04 05:20] LABS: BUN/Creatinine Ratio 16 (6-26); Blood Urea Nitrogen 18 mg/dL (6-20); Calcium 8.6 mg/dL (8.6-10.3); Carbon Dioxide 27 mEq/L (23-29); Chloride 110 mEq/L (98-107); Glucose 111 mg/dL (70-105); Osmolality,Calculated 287 (280-300); Potassium 3.8 mEq/L (3.5-5.1); Sodium 137 mEq/L (136-145); eGFR For African Americans > 60 (> 60); eGFR For Non-African Americans > 60 (> 60)
[2020-02-04] MEDS: HYDROcodone BIT/Homatropine 5 MG TABLET PO PRN (06:34)
[2020-02-04 06:51] VITALS: BP 164/95
[2020-02-04] MEDS: Aspirin Enteric Coated 81 MG Tablet PO SCH (08:00)
[2020-02-04] MEDS: Insulin LISPRO 300 UNITS/3 ML VIAL SQ SCH (08:00)
[2020-02-04] MEDS ORDERED: *HR* OxyCODONE Immed Rel 5 MG TABLET PO PRN (08:00)
[2020-02-04] MEDS: Ascorbic Acid 500 MG TABLET PO SCH (08:06)
[2020-02-04] MEDS: Multivit/Ca/Min/Fe/FA 1 TAB TABLET PO SCH (08:06)
[2020-02-04] MEDS ORDERED: Aspirin Enteric Coated 81 MG Tablet PO SCH (09:00)
== END 2020-02-04 10:20 | disposition home or self-care (01) ==
LOC: 3NENU 12:39 → SAMDAY 12:39 → 3NENU 18:35
PROVIDERS: ADMIT Orthopaedic Surgery; ATTEND Orthopaedic Surgery

== ENCOUNTER 2020-09-19 16:05 | Observation (INO) ==
[2020-09-19] MEDS ORDERED: Cefepime HCl 2,000 MG in 0.9 % Sodium Chloride Mini Bag 100 ML IVPB STA (16:24)
[2020-09-19] MEDS ORDERED: Isovue-370 500 ML BOTTLE IVP ONE (16:35)
[2020-09-19 16:55] LABS: Basophils % 0.5 %; Eosinophils # 0.2 K/mcL (0.0-0.6); Eosinophils % 2.4 %; Hematocrit 43.8 % (37.5-50.1); Hemoglobin 15.1 g/dL (12.9-16.9); Immature Granulocytes % 0.2 % (0-4); Lymphocytes # 1.7 K/mcL (0.6-4.6); Lymphocytes % 19.1 %; Mean Corpuscular HGB Conc 34.5 g/dL (31.6-35.5); Mean Corpuscular Volume 89.9 fL (83.0-100.0); Mean Platelet Volume 12.7 fL (9.4-12.4); Monocytes # 0.6 K/mcL (0.0-1.3); Monocytes % 6.8 %; Neutrophils # 6.1 K/mcL (1.6-8.9); Platelet Count 170 K/mcL (140-400); Red Blood Count 4.87 M/mcL (4.19-5.50); Red Cell Distribution Width 11.8 % (11.5-14.5); White Blood Count 8.6 K/mcL (4.3-11.1)
[2020-09-19 17:08] LABS: Alanine Aminotransferase 18 Units/L (7-52); Albumin/Globulin Ratio 1.4 (1.1-2.2); Alkaline Phosphatase 96 Units/L (34-104); Aspartate Amino Transferase 15 Units/L (13-39); BUN/Creatinine Ratio 13 (6-26); Bilirubin,Total 0.5 mg/dL (0.3-1.0); Blood Urea Nitrogen 12 mg/dL (6-20); C-Reactive Protein 24 mg/L (Less than 10); Calcium 9.1 mg/dL (8.6-10.3); Carbon Dioxide 27 mEq/L (23-29); Chloride 106 mEq/L (98-107); Globulin 2.9 g/dL (2.4-3.5); Glucose 126 mg/dL (70-105); Osmolality,Calculated 289 (280-300); Sodium 139 mEq/L (136-145); Total Protein 6.9 g/dL (6.4-8.9); eGFR For African Americans > 60 (> 60); eGFR For Non-African Americans > 60 (> 60)
[2020-09-19] MEDS ORDERED: Naloxone 0.4 MG/ML INJ IVP PRN (19:17)
[2020-09-19] MEDS ORDERED: Ketorolac 30 MG/ML VIAL IVP PRN (19:17)
[2020-09-19] MEDS ORDERED: 0.9 % Sodium Chloride 1,000 ML IVC SCH (19:30)
[2020-09-19] MEDS ORDERED: Cefepime HCl 2,000 MG in 0.9 % Sodium Chloride Mini Bag 100 ML IVPB SCH (21:00)
[2020-09-19] MEDS ORDERED: Vancomycin 1,250 MG/262.5 ML IV.SOLN IVPB SCH (21:00)
[2020-09-19] MEDS ORDERED: Nitroglycerin 0.4 MG TAB.SUBL SL PRN (23:00)
[2020-09-19] MEDS: Latanoprost 2.5 ML BOTTLE BOTH EYES SCH (23:34)
[2020-09-20] MEDS ORDERED: Cefepime HCl 2,000 MG in Water for inj. (sterile) 20 ML IVP SCH (04:00)
[2020-09-20] MEDS ORDERED: *HR* OxyCODONE Immed Rel 5 MG TABLET PO PRN (04:59)
[2020-09-20 05:07] LABS: Hematocrit 42.1 % (37.5-50.1); Hemoglobin 14.4 g/dL (12.9-16.9); Mean Corpuscular HGB Conc 34.2 g/dL (31.6-35.5); Mean Corpuscular Hemoglobin 30.6 pg (28.0-33.3); Mean Corpuscular Volume 89.4 fL (83.0-100.0); Mean Platelet Volume 12.3 fL (9.4-12.4); Platelet Count 152 K/mcL (140-400); Red Blood Count 4.71 M/mcL (4.19-5.50); Red Cell Distribution Width 11.8 % (11.5-14.5)
[2020-09-20 05:16] LABS: Prothrombin Time 11.9 Seconds (9.4-12.1)
[2020-09-20 05:19] LABS: Activated Partial Thrombo Time 27.3 Seconds (26.0-36.0)
[2020-09-20 05:23] LABS: BUN/Creatinine Ratio 11 (6-26); Blood Urea Nitrogen 10 mg/dL (6-20); Calcium 8.6 mg/dL (8.6-10.3); Carbon Dioxide 24 mEq/L (23-29); Chloride 107 mEq/L (98-107); Glucose 125 mg/dL (70-105); Osmolality,Calculated 285 (280-300); Potassium 3.8 mEq/L (3.5-5.1); Sodium 137 mEq/L (136-145); eGFR For African Americans > 60 (> 60); eGFR For Non-African Americans > 60 (> 60)
[2020-09-20] MEDS: Vancomycin 1,250 MG/262.5 ML IV.SOLN IVPB SCH ×2 (06:21→17:03)
[2020-09-20] MEDS: *HR* OxyCODONE Immed Rel 5 MG TABLET PO PRN ×3 (06:21→23:06)
[2020-09-20] MEDS ORDERED: Aspirin Enteric Coated 81 MG Tablet PO SCH (09:00)
[2020-09-20] MEDS ORDERED: Cefepime HCl 2,000 MG in 0.9 % Sodium Chloride Mini Bag 100 ML IVP SCH (09:45)
[2020-09-20] MEDS: Cefepime HCl 2,000 MG in 0.9 % Sodium Chloride Mini Bag 100 ML IVP SCH ×2 (12:08→20:16)
[2020-09-20] MEDS: Aspirin Enteric Coated 81 MG Tablet PO SCH (20:17)
[2020-09-20] MEDS: Latanoprost 2.5 ML BOTTLE BOTH EYES SCH (20:18)
[2020-09-20] MEDS: Ibuprofen 600 MG TABLET PO SCH (23:06)
[2020-09-21] MEDS: Cefepime HCl 2,000 MG in 0.9 % Sodium Chloride Mini Bag 100 ML IVP SCH ×3 (03:42→20:35)
[2020-09-21] MEDS: *HR* OxyCODONE Immed Rel 5 MG TABLET PO PRN ×3 (06:12→23:35)
[2020-09-21] MEDS: Ibuprofen 600 MG TABLET PO SCH ×4 (06:12→23:34)
[2020-09-21] MEDS: Vancomycin 1,500 MG/265 ML IV.SOLN IVPB SCH ×2 (06:14→17:28)
[2020-09-21 09:01] LABS: Hemoglobin 14.7 g/dL (12.9-16.9); Mean Corpuscular Hemoglobin 31.5 pg (28.0-33.3); Mean Corpuscular Volume 90.1 fL (83.0-100.0); Mean Platelet Volume 12.6 fL (9.4-12.4); Platelet Count 157 K/mcL (140-400); Red Blood Count 4.66 M/mcL (4.19-5.50); Red Cell Distribution Width 11.7 % (11.5-14.5); White Blood Count 7.5 K/mcL (4.3-11.1)
[2020-09-21 09:22] LABS: BUN/Creatinine Ratio 13 (6-26); Blood Urea Nitrogen 11 mg/dL (6-20); Carbon Dioxide 25 mEq/L (23-29); Chloride 105 mEq/L (98-107); Glucose 102 mg/dL (70-105); Potassium 4.2 mEq/L (3.5-5.1); Sodium 137 mEq/L (136-145); eGFR For African Americans > 60 (> 60); eGFR For Non-African Americans > 60 (> 60)
[2020-09-21 09:23] LABS: Calcium 8.8 mg/dL (8.6-10.3); Magnesium 1.9 mg/dL (1.6-2.6); Osmolality,Calculated 284 (280-300); Phosphorous 3.5 mg/dL (2.7-4.5)
[2020-09-21] MEDS: Aspirin Enteric Coated 81 MG Tablet PO SCH (20:36)
[2020-09-21] MEDS: Latanoprost 2.5 ML BOTTLE BOTH EYES SCH (20:36)
[2020-09-22] MEDS: Cefepime HCl 2,000 MG in 0.9 % Sodium Chloride Mini Bag 100 ML IVP SCH ×2 (03:58→11:14)
[2020-09-22] MEDS: Vancomycin 1,500 MG/265 ML IV.SOLN IVPB SCH (05:45)
[2020-09-22] MEDS: *HR* OxyCODONE Immed Rel 5 MG TABLET PO PRN ×2 (05:45→14:08)
[2020-09-22] MEDS: Ibuprofen 600 MG TABLET PO SCH ×2 (05:45→11:15)
[2020-09-22 06:24] LABS: Hemoglobin 15.6 g/dL (12.9-16.9); Mean Corpuscular HGB Conc 34.7 g/dL (31.6-35.5); Mean Corpuscular Hemoglobin 31.2 pg (28.0-33.3); Mean Platelet Volume 12.6 fL (9.4-12.4); Platelet Count 183 K/mcL (140-400); Red Cell Distribution Width 11.6 % (11.5-14.5); White Blood Count 7.8 K/mcL (4.3-11.1)
[2020-09-22 06:43] LABS: BUN/Creatinine Ratio 14 (6-26); Blood Urea Nitrogen 12 mg/dL (6-20); Calcium 9.5 mg/dL (8.6-10.3); Carbon Dioxide 27 mEq/L (23-29); Chloride 103 mEq/L (98-107); Glucose 102 mg/dL (70-105); Magnesium 2.1 mg/dL (1.6-2.6); Osmolality,Calculated 284 (280-300); Phosphorous 3.2 mg/dL (2.7-4.5); Potassium 4.2 mEq/L (3.5-5.1); Sodium 137 mEq/L (136-145); eGFR For African Americans > 60 (> 60); eGFR For Non-African Americans > 60 (> 60)
[2020-09-22] MEDS ORDERED: Acetaminophen IV 1,000 MG/100 ML INFUS..BTL IVPB ONE (10:32)
[2020-09-22 10:33] VITALS: BP 122/78
[2020-09-22] MEDS ORDERED: Bisacodyl 10 MG RECTAL SUPPOSITORY RC SCH (10:45)
== END 2020-09-22 15:32 | disposition home or self-care (01) ==
LOC: EMEROOARM 16:05 → 3NENU 16:05 → SUATTDRO 19:30 → 3NENU 20:20
PROVIDERS: ADMIT Student in an Organized Health Care Education/Training Program; ATTEND Internal Medicine

== ENCOUNTER 2022-01-31 15:10 | Inpatient (IN) ==
[2022-01-31 16:25] LABS: Basophils % 0.2 %; Eosinophils % 0.2 %; Hematocrit 46.4 % (37.5-50.1); Hemoglobin 16.2 g/dL (12.9-16.9); Immature Granulocytes % 0.4 % (0-4); Lymphocytes # 1.6 K/mcL (0.6-4.6); Lymphocytes % 9.5 %; Mean Corpuscular HGB Conc 34.9 g/dL (31.6-35.5); Mean Corpuscular Hemoglobin 30.7 pg (28.0-33.3); Mean Platelet Volume 11.5 fL (9.4-12.4); Monocytes # 1.2 K/mcL (0.0-1.3); Monocytes % 7.1 %; Neutrophils # 13.7 K/mcL (1.6-8.9); Platelet Count 271 K/mcL (140-400); Red Blood Count 5.27 M/mcL (4.19-5.50); Red Cell Distribution Width 11.9 % (11.5-14.5); Segmented Neutrophils % 82.6 %; White Blood Count 16.6 K/mcL (4.3-11.1)
[2022-01-31 16:33] LABS: BUN/Creatinine Ratio 8 (6-26); Blood Urea Nitrogen 8 mg/dL (8-23); C-Reactive Protein 62 mg/L (Less than 10); Calcium 9.3 mg/dL (8.6-10.3); Carbon Dioxide 29 mEq/L (23-29); Chloride 101 mEq/L (98-107); Glucose 100 mg/dL (70-105); Osmolality,Calculated 278 (280-300); Potassium 4.6 mEq/L (3.5-5.1); Sodium 135 mEq/L (136-145); eGFR For African Americans > 60 (> 60); eGFR For Non-African Americans > 60 (> 60)
[2022-01-31] MEDS ORDERED: Lidocaine 1% 20 ML MDV ID ONE (17:12)
[2022-01-31] MEDS ORDERED: ceFAZolin 2,000 MG in 0.9 % Sodium Chloride 100 ML IVPB ONE (18:49)
[2022-01-31] MEDS ORDERED: Acetaminophen 325 MG TABLET PO PRN (21:32)
[2022-01-31] MEDS ORDERED: Ondansetron 4 MG/2 ML VIAL IVP PRN (21:34)
[2022-01-31] MEDS ORDERED: Naloxone 0.4 MG/ML INJ IVP PRN (21:34)
[2022-01-31] MEDS: *HR* Heparin 5,000 UNIT/ML VIAL SQ SCH (22:26)
[2022-01-31 22:34] LABS: Bilirubin,Urine Negative (Negative); Blood,Urine Negative (Negative); Clarity,Urine Clear (Clear); Color,Urine Light-Yellow (Yellow); Glucose,Urine (UA) Normal (Normal); Ketones,Urine Negative (Negative); Leukocyte Esterase,Urine Negative (Negative); Nitrite,Urine Negative (Negative); PH,Urine 6.5 pH Units (5.0-8.0); Protein,Urine Trace mg/dL (Neg-Trace); Specific Gravity,Urine 1.028 (1.010-1.025); Urobilinogen,Urine Normal (Normal)
[2022-01-31 22:53] LABS: Influenza A PCR Negative (Negative); Influenza B PCR Negative (Negative); Resp. Syncytial Virus PCR Negative (Negative)
[2022-01-31 22:55] LABS: SARS-CoV-2 by PCR (In House) Positive (Negative)
[2022-01-31] MEDS: 0.9 % Sodium Chloride 1,000 ML IVC SCH (23:18)
[2022-01-31] MEDS: *HR* OxyCODONE/APAP 5/325 TABLET PO PRN (23:19)
[2022-01-31] MEDS: Cefepime HCl 2,000 MG in 0.9 % Sodium Chloride Mini Bag 100 ML IVPB SCH (23:19)
[2022-01-31] MEDS: Latanoprost 2.5 ML BOTTLE BOTH EYES SCH (23:19)
[2022-02-01] MEDS: *HR* Heparin 5,000 UNIT/ML VIAL SQ SCH ×3 (05:21→20:39)
[2022-02-01] MEDS: *HR* OxyCODONE/APAP 5/325 TABLET PO PRN ×2 (05:26→15:19)
[2022-02-01 06:35] LABS: Hematocrit 44.6 % (37.5-50.1); Hemoglobin 15.2 g/dL (12.9-16.9); Mean Corpuscular HGB Conc 34.1 g/dL (31.6-35.5); Mean Corpuscular Hemoglobin 30.3 pg (28.0-33.3); Mean Corpuscular Volume 88.8 fL (83.0-100.0); Mean Platelet Volume 11.9 fL (9.4-12.4); Platelet Count 250 K/mcL (140-400); Red Blood Count 5.02 M/mcL (4.19-5.50); Red Cell Distribution Width 11.9 % (11.5-14.5); White Blood Count 14.6 K/mcL (4.3-11.1)
[2022-02-01 06:47] LABS: INR 1.3
[2022-02-01 06:50] LABS: Activated Partial Thrombo Time 29.8 Seconds (26.0-36.0)
[2022-02-01] MEDS: Aspirin Enteric Coated 81 MG Tablet PO SCH (07:46)
[2022-02-01] MEDS: Cefepime HCl 2,000 MG in 0.9 % Sodium Chloride Mini Bag 100 ML IVPB SCH ×2 (07:46→15:15)
[2022-02-01] MEDS: 0.9 % Sodium Chloride 1,000 ML IVC SCH ×2 (07:47→18:33)
[2022-02-01 08:22] LABS: BUN/Creatinine Ratio 8 (6-26); Blood Urea Nitrogen 9 mg/dL (8-23); Calcium 8.7 mg/dL (8.6-10.3); Carbon Dioxide 29 mEq/L (23-29); Chloride 102 mEq/L (98-107); Chol/HDL Ratio 3.4 (0-4.9); Cholesterol 131 mg/dL (< 200); Glucose 89 mg/dL (70-105); HDL Cholesterol 38 mg/dL (40-59); LDL Cholesterol,Calculated 80 mg/dL (< 100); Osmolality,Calculated 282 (280-300); Potassium 4.2 mEq/L (3.5-5.1); Sodium 137 mEq/L (136-145); Triglycerides 64 mg/dL (< 150); eGFR For African Americans > 60 (> 60); eGFR For Non-African Americans > 60 (> 60)
[2022-02-01] MEDS: *HR* OxyCODONE Immed Rel 5 MG TABLET PO PRN ×2 (10:09→22:00)
[2022-02-01] MEDS: Vancomycin 1,500 MG/265 ML IV.SOLN IVPB SCH (18:33)
[2022-02-01] MEDS: Latanoprost 2.5 ML BOTTLE BOTH EYES SCH (20:38)
[2022-02-02] MEDS: Cefepime HCl 2,000 MG in 0.9 % Sodium Chloride Mini Bag 100 ML IVPB SCH ×3 (00:22→15:39)
[2022-02-02] MEDS: *HR* Heparin 5,000 UNIT/ML VIAL SQ SCH ×3 (05:30→21:57)
[2022-02-02] MEDS: *HR* OxyCODONE/APAP 5/325 TABLET PO PRN ×3 (06:00→18:18)
[2022-02-02] MEDS: 0.9 % Sodium Chloride 1,000 ML IVC SCH ×2 (06:16→18:02)
[2022-02-02] MEDS ORDERED: Isovue-370 500 ML BOTTLE IVP ONE (06:48)
[2022-02-02] MEDS: Vancomycin 1,500 MG/265 ML IV.SOLN IVPB SCH ×2 (06:50→18:02)
[2022-02-02 06:57] LABS: Hematocrit 40.1 % (37.5-50.1); Hemoglobin 14.2 g/dL (12.9-16.9); Mean Corpuscular HGB Conc 35.4 g/dL (31.6-35.5); Mean Corpuscular Hemoglobin 31.1 pg (28.0-33.3); Mean Corpuscular Volume 87.9 fL (83.0-100.0); Mean Platelet Volume 11.6 fL (9.4-12.4); Platelet Count 256 K/mcL (140-400); Red Blood Count 4.56 M/mcL (4.19-5.50); Red Cell Distribution Width 11.8 % (11.5-14.5); White Blood Count 7.5 K/mcL (4.3-11.1)
[2022-02-02 07:20] LABS: BUN/Creatinine Ratio 12 (6-26); Blood Urea Nitrogen 11 mg/dL (8-23); Calcium 8.3 mg/dL (8.6-10.3); Carbon Dioxide 25 mEq/L (23-29); Chloride 105 mEq/L (98-107); Glucose 123 mg/dL (70-105); Osmolality,Calculated 285 (280-300); Potassium 3.9 mEq/L (3.5-5.1); Sodium 137 mEq/L (136-145); eGFR For African Americans > 60 (> 60); eGFR For Non-African Americans > 60 (> 60)
[2022-02-02] MEDS: *HR* OxyCODONE Immed Rel 5 MG TABLET PO PRN ×3 (09:27→21:56)
[2022-02-02] MEDS: Aspirin Enteric Coated 81 MG Tablet PO SCH (09:27)
[2022-02-02] MEDS: Latanoprost 2.5 ML BOTTLE BOTH EYES SCH (21:58)
[2022-02-03] MEDS: Cefepime HCl 2,000 MG in 0.9 % Sodium Chloride Mini Bag 100 ML IVPB SCH ×3 (00:14→17:44)
[2022-02-03] MEDS: *HR* OxyCODONE/APAP 5/325 TABLET PO PRN ×3 (00:15→21:05)
[2022-02-03] MEDS: *HR* OxyCODONE Immed Rel 5 MG TABLET PO PRN ×2 (03:54→17:43)
[2022-02-03] MEDS: 0.9 % Sodium Chloride 1,000 ML IVC SCH ×3 (06:07→21:05)
[2022-02-03] MEDS: *HR* Heparin 5,000 UNIT/ML VIAL SQ SCH ×3 (06:10→21:06)
[2022-02-03] MEDS ORDERED: Bisacodyl 10 MG RECTAL SUPPOSITORY RC ONE (06:20)
[2022-02-03 06:24] LABS: Basophils # 0.1 K/mcL (0.0-0.2); Eosinophils # 0.3 K/mcL (0.0-0.6); Eosinophils % 4.5 %; Hematocrit 39.1 % (37.5-50.1); Hemoglobin 13.7 g/dL (12.9-16.9); Immature Granulocytes % 0.7 % (0-4); Lymphocytes # 1.9 K/mcL (0.6-4.6); Mean Corpuscular Hemoglobin 30.9 pg (28.0-33.3); Mean Corpuscular Volume 88.3 fL (83.0-100.0); Mean Platelet Volume 11.2 fL (9.4-12.4); Monocytes # 0.7 K/mcL (0.0-1.3); Monocytes % 9.4 %; Neutrophils # 4.3 K/mcL (1.6-8.9); Platelet Count 274 K/mcL (140-400); Red Blood Count 4.43 M/mcL (4.19-5.50); Red Cell Distribution Width 11.7 % (11.5-14.5); Segmented Neutrophils % 58.4 %; White Blood Count 7.3 K/mcL (4.3-11.1)
[2022-02-03 06:43] LABS: BUN/Creatinine Ratio 13 (6-26); Blood Urea Nitrogen 13 mg/dL (8-23); Calcium 8.4 mg/dL (8.6-10.3); Carbon Dioxide 28 mEq/L (23-29); Chloride 104 mEq/L (98-107); Glucose 96 mg/dL (70-105); Osmolality,Calculated 282 (280-300); Potassium 4.3 mEq/L (3.5-5.1); Sodium 136 mEq/L (136-145); eGFR For African Americans > 60 (> 60); eGFR For Non-African Americans > 60 (> 60)
[2022-02-03] MEDS: Vancomycin 1,500 MG/265 ML IV.SOLN IVPB SCH (09:30)
[2022-02-03] MEDS: Vancomycin 1,750 MG/517.5 ML IV.SOLN IVPB SCH ×2 (09:35→21:15)
[2022-02-03] MEDS: Aspirin Enteric Coated 81 MG Tablet PO SCH (09:41)
[2022-02-03] MEDS: Latanoprost 2.5 ML BOTTLE BOTH EYES SCH (23:00)
[2022-02-04] MEDS: Cefepime HCl 2,000 MG in 0.9 % Sodium Chloride Mini Bag 100 ML IVPB SCH ×2 (00:10→08:03)
[2022-02-04 05:35] VITALS: BP 131/82; PULSE 64; TEMP 97.7; O2SAT 96
[2022-02-04] MEDS: *HR* OxyCODONE Immed Rel 5 MG TABLET PO PRN (06:08)
[2022-02-04] MEDS: *HR* Heparin 5,000 UNIT/ML VIAL SQ SCH (06:09)
[2022-02-04] MEDS: Aspirin Enteric Coated 81 MG Tablet PO SCH (08:03)
[2022-02-04] MEDS: 0.9 % Sodium Chloride 1,000 ML IVC SCH (08:04)
[2022-02-04] MEDS: *HR* OxyCODONE/APAP 5/325 TABLET PO PRN (09:07)
[2022-02-04] MEDS: Vancomycin 1,750 MG/517.5 ML IV.SOLN IVPB SCH (09:07)
== END 2022-02-04 10:19 | disposition home or self-care (01) | DRG 871 ==
LOC: 3BNU 15:10 → EMEROOARM 15:10 → SUATTDRO 20:05 → 3BNU 22:02
PROVIDERS: ADMIT Internal Medicine; ATTEND Student in an Organized Health Care Education/Training Program